=== PATIENT | female | born 1950 | race Caucasian/White ===

== ENCOUNTER 2017-12-16 11:43 | Outpatient (CLI) | payer MEDICARE, OTHER | END 2017-12-16 11:44 | disposition home or self-care (01) | LOC: BICMAMMO 11:43 | PROVIDERS: ATTEND Internal Medicine | DX: Z12.31 Encounter for screening mammogram for malignant neoplasm of breast (principal) | CPT/HCPCS: 77063; 77067 ==

== ENCOUNTER 2018-09-14 13:22 | Outpatient (CLI) | payer MEDICARE, OTHER ==
--- NOTE | 2018-09-14 14:35 | BD ---
DEXA BONE DENSITY: HISTORY: A 67-year-old female. Screening exam. COMPARISON: 04/12/2013 LUMBAR SPINE BMD (g/cm2) T-SCORE Z-SCORE L1 0.905 -0.8 0.9 L2 0.959 -0.6 1.2 L3 1.005 -0.7 1.2 L4 1.077 0.1 2.2 TOTAL 0.991 -0.5 1.4 On 04/12/2013, 0.986 and -0.6. BMD change versus baseline +0.5%. BMD change versus previous +0.5%. BMD (g/cm2) T-SCORE Z-SCORE FEMORAL NECK 0.647 -1.8 -0.2 TOTAL 0.861 -0.7 0.7 On 04/12/2013, 0.849 and -0.8. IMPRESSION: 1. Lumbar spine WHO classification is normal. Fracture risk is not increased. 2. Femoral neck WHO classification is osteopenia. Ten-year fracture risk for major osteoporotic fra cture is 17% and hip fracture is 2.4%. POS: [facility]
== END 2018-09-14 13:23 | disposition home or self-care (01) ==
LOC: BICMAMMO 13:22
PROVIDERS: ATTEND Obstetrics & Gynecology
DX: Z13.820 Encounter for screening for osteoporosis (principal); M85.859 Other specified disorders of bone density and structure, unspecified thigh
CPT/HCPCS: 77080

== ENCOUNTER 2021-01-23 13:29 | Outpatient (CLI) | payer MEDICARE, OTHER | END 2021-01-23 13:30 | disposition home or self-care (01) | LOC: BICMAMMO 13:29 | PROVIDERS: ATTEND Obstetrics & Gynecology | DX: Z12.31 Encounter for screening mammogram for malignant neoplasm of breast (principal) | CPT/HCPCS: 77063; 77067 ==

== ENCOUNTER 2022-01-26 13:10 | Outpatient (CLI) | payer MEDICARE, OTHER | END 2022-01-26 13:11 | disposition home or self-care (01) | LOC: BICMAMMO 13:10 | PROVIDERS: ATTEND Obstetrics & Gynecology | DX: Z12.31 Encounter for screening mammogram for malignant neoplasm of breast (principal) | CPT/HCPCS: 77063; 77067 ==

== ENCOUNTER 2024-09-13 13:18 | Outpatient (CLI) | payer MEDICARE, OTHER | END 2024-09-13 13:19 | disposition home or self-care (01) | LOC: BICMAMMO 13:18 | PROVIDERS: ATTEND Internal Medicine | DX: Z12.31 Encounter for screening mammogram for malignant neoplasm of breast (principal) | CPT/HCPCS: 77063; 77067 ==